=== PATIENT | male | born 1950 | race Caucasian/White ===

== ENCOUNTER 2023-05-05 22:10 | Emergency (ER) | payer OTHER, SELFPAY ==
[2023-05-05 22:11] VITALS: BP 148/95; PULSE 97; RESP 16; TEMP 36.6; O2SAT 98; BMI 25.9
--- NOTE | 2023-05-05 22:51 | EDS_ITS ---
HPI History of Present Illness HPI Narrative: Patient presents with left wrist and forearm pain that has been getting worse since this morning. Patient states he woke up with the pain today. Patient states it is gradually getting worse. Patient describes the pain as sharp. Patient states it is worse with any movement. Patient denies any paresthesias or weakness. Patient states nothing seems to help with the pain. Patient denies any fevers or chills. Patient denies any trauma or injury. Chief Complaint: Upper Extremity Injury Informant: patient Onset/Context/Timing Onset: Today Context: Gradual Onset Timing: Continuous Quality of Pain: Sharp Worsened by: Movement Relieved by: Nothing Associated Symptoms Associated Symptoms: Negative for Parasthesia, Weakness or Loss of Funtion PFSH PFS Medical History (Updated 05/06/23 @ 00:[address] Kenny Hart DO) Back pain Hypertension Home Medications cholecalciferol (vitamin D3) 125 mcg (5,000 unit) capsule 125 mcg PO DAILY 05/05/23 [History Last Taken Unknown] cyclobenzaprine 10 mg tablet 10 mg PO Q8H PRN muscle spasm 05/05/23 [History Last Taken Unknown] gabapentin 300 mg capsule 300 mg PO TID 05/05/23 [History Last Taken Unknown] losartan 25 mg tablet 25 mg PO DAILY 05/05/23 [History Last Taken Unknown] magnesium 200 mg tablet 400 mg PO DAILY 05/05/23 [History Last Taken Unknown] meloxicam 15 mg tablet 15 mg PO DAILY #10 tabs 05/06/23 [Rx Last Taken Unknown] Allergy/AdvReac Type Severity Reaction Status Date / Time No Known Allergies Allergy Verified 05/05/23 22:12 Surgical History (Updated 05/06/23 @ 00:[address] Kenny Hart DO) History of back surgery Social History Smoking Status: Current every day smoker tobacco type: cigarettes ROS ROS ED Constitutional Constitutional ED: Denies chills or fever(s) Eyes Eyes: Denies blurry vision or change in vision ENT ENT ED: Denies rhinorrhea or sore throat Cardiovascular Cardiovascular: Denies chest pain or palpitations Respiratory/Chest Respiratory/Chest: Denies cough or dyspnea Gastrointestinal Gastrointestinal: Denies nausea or vomiting Genitourinary Genitourinary ED: Denies dysuria or hematuria Musculoskeletal Musculoskeletal: Reports back pain and neck pain Integumentary Denies abscess or rash Neurologic Neurologic: Reports headache(s); Denies weakness Allergic/Immunologic Allergic/Immunologic ED: Denies mouth swelling or urticaria EXAM Physical Exam Const Vital Signs: 05/05/23 22:11 Temperature 97.8 F Temperature Source Temporal Pulse Rate 97 Respiratory Rate 16 Blood Pressure 148/95 H Blood Pressure Mean 112 Pulse Ox 98 Oxygen Delivery Method Room Air Positive well nourished and well developed General Appearance ED: well developed and NAD HEENT Reports moist mucous membranes Neck Neck Narrative: There is tenderness over the cervical paraspinal muscles. There is some mild midline tenderness. There is no bony crepitance or step-off. Range of motion was limited in all motions of the cervical spine secondary to pain. Resp normal respiratory effort and clear to auscultation bilaterally Cardio regular rate and regular rhythm GI non-tender and non-distended Palpation: soft Extremity Extremity Narrative: There is tenderness and mild edema of the left wrist. There is no deformity noted. Range of motion was limited in all motions of the left wrist secondary to pain. There is minimal pain with short arc range of motion. Radial pulses are equal bilateral. Sensation was intact to light touch in the radial, median, and ulnar areas. Strength is 5/5 in the radial, median, and ulnar areas. Neuro oriented x3, CN's II-XII intact bilaterally, moves all extremities, no focal motor deficits and no sensory deficits noted Sensorium / Orientation: alert Motor Exam: strength 5/5 throughout Psych mental status grossly normal MDM MDM MDM Narrative Medical decision making narrative: Differential diagnosis includes cardiac dysrhythmia, cardiac ischemia, cervical radiculopathy, inflammatory arthritis, tendinitis, and osteomyelitis. X-rays of the left wrist will be obtained to assess for osteomyelitis and degenerative changes. CT scan of the cervical spine will be obtained to assess for degenerative arthritis and foraminal stenosis. CBC will be obtained to assess for leukocytosis and anemia. Basic metabolic profile will be obtained to assess for electrolyte abnormality and renal function. Sed rate and CRP will be obtained to assess for inflammatory markers. Lab Data Lab results narrative: CBC was reviewed. There is a mild anemia with a hemoglobin of 11.8 and hematocrit 36.9. White blood cell count was normal. Basic metabolic profile was reviewed. BUN was 59 and creatinine was 1.63. There are no prior lab values for comparison. Anion gap was normal. Sed rate was reviewed and was slightly elevated at 25. C-reactive protein was reviewed and was elevated at 18.4. Radiography Diagnostic Testing: X-rays of the left wrist were obtained. There is a questionable old scaphoid fracture. There is no acute fracture or dislocation noted. There are some degenerative changes noted. Radiologist also interpreted the x-rays and agrees. CT scan of the cervical spine was obtained. There is some degenerative changes of the cervical spine. There is no foraminal stenosis. There is no spondylolisthesis. This was interpreted by the radiologist and was also independently reviewed by myself. EKG Initial EKG: Attestation: I personally reviewed and interpreted this EKG as follows: Interpretation: Sinus Rhythm (86) and No Acute Injury Pattern Comments: EKG was obtained. On my independent interpretation, it showed a normal sinus rhythm with a rate of 86. OH interval, QRS interval, and QTc intervals were all normal. [place] was normal. There are no acute ST or T wave changes. Prior EKG tracings: not available for review Prior: No Prior Treatment and Re-Evaluation Narrative: Patient was given a dose of morphine here. Patient was advised of his findings. Since the patient has not fallen recently I do not feel the questionable scaphoid fracture is new. Patient was placed in a thumb spica splint. Patient was given a prescription for meloxicam to take as needed for pain and inflammation. Patient was instructed to ice and elevate the left wrist. Buddy castillo was instructed to follow-up with his primary care physician in 3 to 5 days for reevaluation. Patient understood and was agreeable with the plan. All questions were answered. Discharge Plan Triage Chief Complaint: Upper Extremity Injury ED Provider: Kenny Hart Dx/Rx/DC Orders Clinical Impression: Arthralgia of left wrist Instructions: ED Arthralgia, ED RICE Prescriptions: New meloxicam 15 mg tablet 15 mg PO DAILY Qty: 10 0RF No Action cyclobenzaprine 10 mg tablet 10 mg PO Q8H PRN (Reason: muscle spasm) gabapentin 300 mg capsule 300 mg PO TID magnesium 200 mg tablet 400 mg PO DAILY losartan 25 mg tablet 25 mg PO DAILY cholecalciferol (vitamin D3) 125 mcg (5,000 unit) capsule 125 mcg PO DAILY [facility] [Primary Care Provider] - 3-5 Days Disposition Disposition: Home, Self Care
--- NOTE | 2023-05-05 23:09 | EKG12_ITS ---
Test Reason : Blood Pressure : / mmHG Vent. Rate : 086 BPM Atrial Rate : 086 BPM P-R Int : 168 ms QRS Dur : 076 ms QT Int : 382 ms P-R-T Axes : 064 039 054 degrees QTc Int : 457 ms Normal sinus rhythm Normal ECG Confirmed by DOMINIK SALVADOR MD ([id number]), newspaper or periodical editor HONG WHALEN ([id number]) on 05/14/2023 9:19:31 AM Referred By: Confirmed By:DOMINIK SALVADOR MD
--- NOTE | 2023-05-05 23:11 | RAD_ITS ---
STUDY: X-RAY - LEFT WRIST REASON FOR EXAM: Male, 72 years old. Injury/Pain TECHNIQUE: 3 view(s) of the wrist were obtained. COMPARISON: None. FINDINGS: There is demineralization of the radius and ulna. Possible minimal degenerative arthrosis of the radiocarpal articulation. Normal distal radioulnar articulation. There is demineralization of the carpal bones. Questionable mild sclerosis involving the mid-distal portion of the scaphoid which may indicate sequela of a fracture, possibly old. Normal carpal articulations. Normal carpometacarpal articulation of the thumb. Normal second through fifth carpometacarpal articulations. Normal visualized metacarpal bones. Soft tissue swelling at the wrist. Vascular calcifications consistent with peripheral arterial disease. RAD/Wrist min 3 Views IMPRESSION: Question sequela of old fracture of the scaphoid bone, cannot exclude acute injury. Recommend follow-up with dedicated scaphoid views. Soft tissue swelling as described with no other sites suspicious for acute fracture. No subluxation. Electronically Signed: Bernadette Mitchell MD at 23:49 EST ,
[2023-05-05] MEDS: Morphine 4 MG/ML Syringe IV (23:31)
[2023-05-05 23:33] LABS: Absolute Lymphocyte Count 1.22 X10^3/uL (0.83-4.51); Absolute Neutrophil Count 5.3 X10^3/uL (2.0-7.7); Basophil# 0.03 X10^3/uL; Basophil% 0.4 % (0-1); Eosinophil# 0.22 X10^3/uL; Eosinophils% 2.9 % (0-5); Hematocrit 36.9 % (40-54); Hemoglobin 11.8 g/dL (13.0-16.5); Lymphocyte # 1.22 X10^3/ul (0.83-4.51); Lymphocyte % 16.3 % (19-41); Mean Corpuscular Hgb 29.9 pg (27.0-32.0); Mean Corpuscular Volume 93.7 fL (80-94); Mean Platelet Vol. 9.7 fl (6.2-12.0); Monocyte# 0.73 X10^3/uL; Monocyte% 9.8 % (0-10); NRBC Flagged by Analyzer 0 % (0-5); Neutrophil # 5.25 X10^3/uL (2.7-7.7); Neutrophil % 70.2 % (47-70); Platelet Count 189 K/mm3 (150-450); RBC Distribution Width CV 12.6 % (11.6-14.6); RBC Distribution Width SD 43.4 fl (35.1-43.9); Red Blood Count 3.94 M/mm3 (4.6-6.2); White Blood Count 7.5 K/mm3 (4.4-11.0)
[2023-05-05 23:38] LABS: Erythrocyte Sedimentation Rate 25 mm/hr (0-20)
[2023-05-05 23:53] LABS: Anion Gap 4 (5-15); BUN 59 mg/dL (7-18); BUN/Creat Ratio 36.2 RATIO (10-20); Calcium,Total 9.6 mg/dL (8.5-10.1); Chloride 99 mmol/L (98-107); Creatinine, Serum 1.63 mg/dL (0.70-1.30); EST Glomerular Filtration Rate 44 mL/min (>60); Est Glom Filt Rate - Afr Amer 53 mL/min (>60); Estimated Creatinine Clearance 39.76 ml/min; Glucose 109 mg/dL (74-106); Potassium 4.9 mmol/L (3.5-5.1); Sodium Level 133 mmol/L (136-145)
--- NOTE | 2023-05-05 23:55 | CT_ITS ---
STUDY: CT CERVICAL SPINE WITHOUT CONTRAST REASON FOR EXAM: Male, 72 years old patient with neck injury and pain. RADIATION DOSAGE (If Supplied By Facility): CTDIvol = ( 21.76 ) mGy, DLP = ( 457.77 ) mGycm TECHNIQUE: High resolution transaxial imaging was performed without contrast material. Sagittal and coronal images were reconstructed. Individualized dose optimization techniques were used for this CT. COMPARISON: Prior comparison studies are not available for review at this time. FINDINGS: Normal craniovertebral junction. There are degenerative changes of the anterior atlantoaxial articulation. Normal odontoid process. There is straightening of the normal cervical lordosis. There is decreased height of the C4, C5 and C6 vertebral bodies possibly secondary to mild old compression fractures. Remaining imaged thoracic and cervical vertebral bodies otherwise have normal height. C2-3: Normal endplates. Normal disc height and morphology. Normal central canal. There is left-sided facet joint hypertrophy. There is mild narrowing of bilateral intervertebral neuroforamina. C3-4: There is narrowing of the disc space with small endplate osteophytes. There is moderate left-sided neural foraminal narrowing and right-sided neural foraminal narrowing. There is bilateral uncovertebral and facet arthropathy, left worse than right. There is no central acquired canal stenosis. C4-5: There is narrowing of the disc space. There is a disc bulge and osteophyte complex. There is mild central acquired canal stenosis. There is severe right-sided neural foraminal narrowing and moderate left-sided neural foraminal narrowing with bilateral uncovertebral and facet joint arthropathy. C5-6: There is narrowing of the disc space with endplate osteophytes. There is severe neural foraminal narrowing with uncovertebral and facet arthropathy. There is mild central cord canal stenosis. C6-7: There is narrowing of the disc space with endplate osteophytes. There is moderate bilateral foraminal narrowing with uncovertebral joint hypertrophy. There is no central acquired canal stenosis. C7-T1: Normal endplates. Normal disc height and morphology. Normal central canal and intervertebral neuroforamina. There is mild atherosclerotic calcification of the carotid bulbs. Nasopharynx, oropharynx, hypopharynx, larynx and cervical trachea are within normal limits. The thyroid appears atrophic. CT/Spine Cervical without Contras IMPRESSION: 1. No CT evidence of acute compression or displaced fracture. 2. Moderately severe multilevel degenerative changes of the cervical spine with neural foraminal narrowing and central acquired canal stenosis. Electronically Signed: Pearl Aguilera MD at 0:31 EST ,
== END 2023-05-06 01:43 | disposition home or self-care (01) ==
PROVIDERS: Emergency Provider Emergency Medicine; Visit Provider Emergency Medicine
DX: M25.532 Pain in left wrist (principal); I10 Essential (primary) hypertension; F17.210 Nicotine dependence, cigarettes, uncomplicated; Z79.899 Other long term (current) drug therapy
CPT/HCPCS: 72125; 73110; 80048; 85025; 85652; 86140; 93005; 96374; 99285; A4216